=== PATIENT | female | born 2000 | race Caucasian/White ===

== ENCOUNTER → 2019-03-24 | Outpatient (CLI) | payer BC ==
[~2019-03-24] MED LIST: IBUPROFEN 600600 M1 PO
--- NOTE | 2019-04-02 11:41 | SLEEP ---
[address] [address] SLEEP STUDY REPORT Name: SUSHMA GARCIA Room: [facility]#: [id number] Admission: 03/24/19 Attend Phys: Rk Mclaughlin MD Discharge: Date of : 89 Report #: [id number] THIS REPORT FOR: //name// CC: FAM unknown Rk Mclaughlin MD This study has been reviewed in its entirety by a board certified sleep specialist DATE OF SERVICE: 03/27/2019 SLEEP STUDY ATTENDING PHYSICIAN: Rk Mclaughlin M.D. The patient is 18 years old who weighs 223 pounds with a BMI of 32. The patient's Laporte score was 20. The patient underwent home sleep study performed at [facility]. Total recording time was 496 minutes. During the night study, the patient had 7 obstructive apneas, no mixed or central apneas and 5 hypopneas. The patient's apnea-hypopnea index for the entire night was 1.6 per hour with a supine index of 2.2 per hour. It should be noted that the flow signal was not of the best quality on the study. Nocturnal oximetry study revealed an average oxygen saturation of 97% with lows of 83%. Twelve minutes were spent in oxygen saturation of less than 90% and 2 minutes with saturation of less than 85%. Mean heart rate was 74 beats per minute. IMPRESSION: 1. No clinically significant sleep disordered breathing. The patient's AHI for the entire night was 1.6 per hour. 2. Mild nocturnal hypoxia. RECOMMENDATIONS: 1. The patient does not meet the criteria for CPAP initiation due to very low AHI. 2. The patient has severe subjective hypersomnia with an Laporte score of 20. If sleep apnea is still clinically suspected, then consider in -lab sleep study. If sleep apnea is not clinically suspected, then consider ruling out other possibilities of the patient's hypersomnia such as Narcolepsy or idiopathic hypersomnia. Consider multiple sleep latency tests to rule out these possibilities. 3. Avoid [employer] [place] [address] SLEEP STUDY REPORT Name: GARCIASUSHMA Room: [facility]#: [id number] Admission: 03/24/19 Attend Phys: Rk Mclaughlin MD Discharge: Date of : 89 Report #: [id number] 4. Cautioned regarding driving or operating heavy machinery until the patient's hypersomnia is resolved. <ELECTRONICALLY SIGNED> By: Matias Graham MD 04/02/19 1141 [id number] 1902Apadmini Graham MD /nt
== END ==
LOC: M.SLEEPLAB 02-22 20:00
DX: G47.33 Obstructive sleep apnea (adult) (pediatric) (principal); R06.83 Snoring; F41.9 Anxiety disorder, unspecified; F32.9 Major depressive disorder, single episode, unspecified